=== PATIENT | female | born 1990 | race Caucasian/White ===

== ENCOUNTER 2019-07-09 21:50 | Emergency (ER) | payer OTHER ==
[~2019-07-09] VITALS: Ht 165.1 cm; Wt 62.6 kg
--- NOTE | 2019-07-09 22:20 | NUR ---
Dr. Cartwright at bedside for MSE.
--- NOTE | 2019-07-09 23:43 | NUR ---
Pt out of ER for xray.
--- NOTE | 2019-07-09 23:53 | NUR ---
Pt back to ER from Xray.
[2019-07-10 00:15] LABS: *URINE HCG, QUAL NEGATIVE (NEGATIVE)
--- NOTE | 2019-07-10 01:27 | NUR ---
Patient discharged to home in stable conditon. Written and verbal after care instructions given. Patient verbalizes understanding of instructions. Pt ambulated out of ER with steady gait, no acute signs of distress, VSS, all belongings taken.
[2019-07-10 01:28] VITALS: BP 130/70
== END 2019-07-10 01:28 | disposition home or self-care (01) ==
LOC: ER 21:54
DX: J20.9 Acute bronchitis, unspecified (principal); F12.10 Cannabis abuse, uncomplicated; R19.7 Diarrhea, unspecified
CPT/HCPCS: 36415; 71046; 84703; 86403; 87070; 87400; A4663